=== PATIENT | female | born 1940 | race Caucasian/White ===

== ENCOUNTER 2019-10-22 11:33 | Emergency (ER) | payer OTHER ==
[~2019-10-22] VITALS: Ht 165.1 cm; Wt 54.4 kg
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
[2019-10-22] MEDS ORDERED: SIMVASTATIN (11:44)
[2019-10-22] MEDS ORDERED: LEVOTHYROXINE (11:44)
--- NOTE | 2019-10-22 11:50 | NUR ---
Eexamine by dr. shweta okeefe with pt no garrett thompson
--- NOTE | 2019-10-22 11:51 | NUR ---
[employer] at bedside talking with pt.
--- NOTE | 2019-10-22 11:55 | NUR ---
[facility] at bed side unit # [id number] 2 [employer]ER ROSA ISELA [id number] AND MARLENI LEWIS [id number]
--- NOTE | 2019-10-22 12:40 | NUR ---
xray done as order dineses sob or resp distress
[2019-10-22 13:29] VITALS: BP 128/70
== END 2019-10-22 13:30 | disposition home or self-care (01) ==
LOC: ER 11:33
DX: S20.219A Contusion of unspecified front wall of thorax, initial encounter (principal); E78.00 Pure hypercholesterolemia, unspecified; E03.9 Hypothyroidism, unspecified; Z79.899 Other long term (current) drug therapy; V47.5XXA Car driver injured in collision with fixed or stationary object in traffic accident, initial encounter; Y93.89 Activity, other specified; Y92.89 Other specified places as the place of occurrence of the external cause; Y99.8 Other external cause status
CPT/HCPCS: 71120; A4663